=== PATIENT | female | born 1945 | race African-American/Black ===

== ENCOUNTER → 2017-07-29 | Outpatient (CLI) | payer MEDICARE ==
--- NOTE | 2017-07-29 15:24 | WOMENS IMAGING REPORT ---
EXAM DESCRIPTION: BILAT SCREENING MAMMO W/CAD COMPLETED DATE/TIME: 07/29/2017 2:19 pm REASON FOR STUDY: SCREENING Z12.31 ENCNTR SCREEN MAMMOGRAM FOR MALIGNANT NEOPLASM OF CEZAR COMPARISON: None. TECHNIQUE: Standard craniocaudal and mediolateral oblique views of each breast recorded using digita l acquisition. LIMITATIONS: None. FINDINGS: No masses, calcifications or architectural distortion. No areas of suspicion. Read with the assistance of CAD. .[facility] - R2 Cenova Version 1.3 .[facility] - R2 Cenova Version 1.3 .[facility] - R2 Cenova Version 2.4 .[facility] [place] - R2 Cenova Version 2.4 .[facility] - R2 [employer]ment Services Manager Version 9.2 IMPRESSION: NORMAL MAMMOGRAM. BIRADS 1. BREAST DENSITY: b. There are scattered areas of fibroglandular density. BIRAD: 1 NEGATIVE RECOMMENDATION: ROUTINE SCREENING COMMENT: The patient has been notified of the results by letter per SA requirements. Additional no tification policies are in place for contacting patient with suspicious or incomplete findings. Quality ID #225: The [employer] recommends an annual screening mammogram for women aged 40 years or over. This facility utilizes a reminder system to ensure that all patients receive reminder letters, and/or direct phone calls for appointments. This includes reminders for routine scr eening mammograms, diagnostic mammograms, or other Breast Imaging Interventions when appropriate. Th is patient will be placed in the appropriate reminder system. The [employer] (ACR) has developed recommendations for screening MRI of the breast s in certain patient populations, to be used in conjunction with mammography. Breast MRI surveillanc e may be appropriate for women with more than 20% lifetime risk of developing breast cancer as deter mined by genetic testing, significant family history of the disease, or history of mantle radiation f or Hodgkins Disease. ACR Practice Guidelines 2008. TECHNICAL DOCUMENTATION: FINDING NUMBER: (1) ASSESSMENT: (1) JOB ID: [id number] [employer]- All Rights Reserved
== END ==
LOC: WI 12:46
PROVIDERS: ATTEND Internal Medicine
DX: Z12.31 Encounter for screening mammogram for malignant neoplasm of breast (principal)
CPT/HCPCS: 77067; G0202

== ENCOUNTER 2018-07-15 09:21 | Day surgery (SDC) | payer MEDICARE ==
[~2018-07-15 09:21] MED LIST: KETOROLAC TROMETHAMINE 0.45% 4 DROP/0.4 ML DROPERETTE OD PRN
[2018-07-15] MEDS ORDERED: LIDOCAINE 1% INJ-PF (10 MG/ML) 30 ML SDV ONE (09:44)
[2018-07-15] MEDS ORDERED: EPINEPHRINE INJ/PF 1 MG/1 ML AMPULE ONE (09:44)
[2018-07-15] MEDS ORDERED: CHONDR SU A NA/HYALUR INTRAOC KIT (SURGICARE) ONE (09:44)
[2018-07-15] MEDS ORDERED: MIDAZOLAM 2 MG/2 ML INJ ONE (09:45)
[2018-07-15] MEDS ORDERED: TRYPAN BLUE 0.06 % OPH SOLN 0.5 ML DISP.SYRIN ONE ×2 (09:46→09:47)
[2018-07-15] MEDS: CYCLOPENTOLATE 0.2%/PHENYLEPHRINE 1% OPH SOLN 2 ML OD PRN ×3 (10:16→10:37)
[2018-07-15] MEDS: BESIFLOXACIN HCL 0.6% OPH SUSP 5 ML BOTTLE OD PRN ×4 (10:16→11:17)
[2018-07-15] MEDS: TROPICAMIDE 1% OPH SOLN 3 ML OD PRN ×3 (10:16→10:37)
[2018-07-15] MEDS: TETRACAINE HCL 0.5% OPH SOLN 4 ML OD PRN ×3 (10:17→10:55)
--- NOTE | 2018-07-16 07:27 | [facility] OPERATIVE REPORT E ---
[facility] Operative Report NAME: EDE WELLS AGE: 73Y DATE OF SURGERY: 07/15/2018 ROOM: PREOPERATIVE DIAGNOSIS: CATARACT, RIGHT EYE. POSTOPERATIVE DIAGNOSIS: CATARACT, RIGHT EYE. OPERATION: Cataract extraction with insertion of an IOL of the right eye. SURGEON: VONDA GODDARD M.D. ANESTHESIA: Topical. PROCEDURE: After obtaining appropriate consent, the patient's right eye was prepped and draped in sterile fashion as well as the surgeon in a sterile manner and cataract surgery was started. First a paracentesis blade was used to make a side-port incision. Viscoelastic was used to inflate the anterior chamber. Next a 2.4 mm incision was made with a 2.4 mm blade, clear corneal temporally. A continuous capsulorrhexis was made using a cystotome and Utrata forceps. Following this hydrodissection was carried out to make the lens fully loose and mobile and it was rotated 90 degrees. Following this, a hopbmj-yyi-qicvzhg technique was used to phacoemulsify the lens with a CDE of 10.37. The remaining cortex was removed with irrigation/aspiration. Provisc was instilled into the capsular bag to inflate the bag. A SN60WF, 22.5 diopter lens was placed. The remaining viscoelastic material was removed with irrigation/aspiration. Following this, the incision was found to be watertight. Besivance was instilled into the eye and a protective shield was placed over the eye. The patient returned to the postoperative recovery in stable condition. DICTATING PHYSICIAN: VONDA GODDARD M.D. [id number] PHY#: [id number] ID: [id number] JOB#: [id number] ACCT: [id number] cc:VONDA GODDARD M.D. >
--- NOTE | 2018-07-16 07:37 | [facility] DISCHARGE SUMMARY E ---
[facility] Discharge Summary NAME: EDE WELLS AGE: 73Y ADMITTED: 07/15/2018 DISCHARGED: 07/15/2018 HISTORY: This is a 73-year-old female who underwent cataract extraction of the right eye. DIAGNOSIS: Cataract, right eye. HOSPITAL COURSE: She underwent surgery because she was having difficulty driving at night secondary to glare from headlight. DISCHARGE INSTRUCTIONS: She should be on a regular diet. No bending at her waist. No heavy lifting. She should use her Vigamox, Ketorolac, and Predforte at 3 p.m. and 8 p.m. and sleep with a rigid shield, and I will see her for a one day postoperative tomorrow. DICTATING PHYSICIAN: VONDA GODDARD M.D. [id number] PHY#: [id number] 1938 ID: [id number] JOB#: [id number] ACCT: [id number] cc:VONDA GODDARD M.D. >
== END 2018-07-15 11:55 | disposition home or self-care (01) ==
LOC: SC 09:21
PROVIDERS: ATTEND Internal Medicine
DX: H25.89 Other age-related cataract (principal); I10 Essential (primary) hypertension; E11.9 Type 2 diabetes mellitus without complications
CPT/HCPCS: 66984; 82962; V2632; J2250; J3490 ×4; A9270; J0171

== ENCOUNTER 2018-08-05 09:16 | Day surgery (SDC) | payer MEDICARE ==
[~2018-08-05 09:16] MED LIST changes: +CHONDR SU A NA/HYALUR INTRAOC KIT (SURGICARE) ONE; +EPINEPHRINE INJ/PF 1 MG/1 ML AMPULE ONE; -KETOROLAC TROMETHAMINE 0.45% 4 DROP/0.4 ML DROPERETTE OD PRN; +KETOROLAC TROMETHAMINE 0.45% 4 DROP/0.4 ML DROPERETTE OS PRN; +LIDOCAINE 1% INJ-PF (10 MG/ML) 30 ML SDV ONE
[2018-08-05] MEDS: BESIFLOXACIN HCL 0.6% OPH SUSP 5 ML BOTTLE OS PRN ×4 (09:40→10:43)
[2018-08-05] MEDS: TETRACAINE HCL 0.5% OPH SOLN 4 ML OS PRN ×3 (09:40→10:21)
[2018-08-05] MEDS: TROPICAMIDE 1% OPH SOLN 3 ML OS PRN ×3 (09:40→10:00)
[2018-08-05] MEDS: CYCLOPENTOLATE 0.2%/PHENYLEPHRINE 1% OPH SOLN 2 ML OS PRN ×3 (09:40→10:00)
[2018-08-05] MEDS ORDERED: MIDAZOLAM 2 MG/2 ML INJ ONE (10:02)
[2018-08-05] MEDS ORDERED: TRYPAN BLUE 0.06 % OPH SOLN 0.5 ML DISP.SYRIN ONE (10:13)
[2018-08-05] MEDS ORDERED: FENTANYL CITRATE INJ/PF 100 MCG/2 ML AMPUL ONE (10:21)
--- NOTE | 2018-08-06 13:27 | [facility] OPERATIVE REPORT E ---
[facility] Operative Report NAME: EDE WELLS AGE: 73Y DATE OF SURGERY: 08/05/2018 ROOM: PREOPERATIVE DIAGNOSIS: Other age-related cataract of the left eye. POSTOPERATIVE DIAGNOSIS: Other age-related cataract of the left eye. OPERATION: Complex cataract extraction with use of Trypan blue dye due to dense cortical spoking. SURGEON: VONDA GODDARD M.D. ANESTHESIA: Topical. PROCEDURE: After obtaining appropriate consent, the patient's left eye was prepped and draped in sterile fashion as well as the surgeon in a sterile manner and cataract surgery was started. First a paracentesis blade was used to make a side-port incision. Viscoelastic was used to inflate the anterior chamber. Next a 2.4 mm incision was made with a 2.4 mm blade, clear corneal temporally. A continuous capsulorrhexis was made using a cystotome and Utrata forceps. Following this hydrodissection was carried out to make the lens fully loose and mobile and it was rotated 90 degrees. Following this, a eziwjt-bpt-xbvlewv technique was used to phacoemulsify the lens with a CDE of 9.35. The remaining cortex was removed with irrigation/aspiration. Provisc was instilled into the capsular bag to inflate the bag. A SN60WF, 23.0 diopter lens was placed. The remaining viscoelastic material was removed with irrigation/aspiration. Following this, the incision was found to be watertight. Besivance was instilled into the eye and a protective shield was placed over the eye. The patient returned to the postoperative recovery in stable condition. Prior to making the capsulorrhexis, due to poor visualization, Trypan blue dye was used to stain the anterior capsule. DICTATING PHYSICIAN: VONDA GODDARD M.D. [id number] PHY#: [id number] 2021 ID: [id number] JOB#: [id number] ACCT: [id number] cc:VONDA GODDARD M.D. >
--- NOTE | 2018-08-06 13:27 | [facility] DISCHARGE SUMMARY E ---
[facility] Discharge Summary NAME: EDE WELLS AGE: 73Y ADMITTED: 08/05/2018 DISCHARGED: 08/05/2018 HISTORY: This is a 73-year-old patient who underwent complex cataract extraction with the use of Trypan blue dye to dense cortical spoking. DIAGNOSIS: Other age-related cataract of the left eye. HOSPITAL COURSE: The patient underwent cataract extraction because she was having trouble seeing small print. DISCHARGE INSTRUCTIONS: She should be on a regular diet. No bending at the waist. No heaving lifting. She should her Vigamox, Ketorolac, and Durezol at 3 p.m. and 8 p.m. and sleep with a rigid shield, and I will see her for a 1 day postoperative tomorrow. DICTATING PHYSICIAN: VONDA GODDARD M.D. [id number] PHY#: [id number] 2021 ID: [id number] JOB#: [id number] ACCT: [id number] cc:VONDA GODDARD M.D. >
== END 2018-08-05 11:18 | disposition home or self-care (01) ==
LOC: SC 09:16
PROVIDERS: ATTEND Internal Medicine
DX: H25.89 Other age-related cataract (principal); Z96.1 Presence of intraocular lens; E11.9 Type 2 diabetes mellitus without complications; Z79.84 Long term (current) use of oral hypoglycemic drugs; I10 Essential (primary) hypertension; Z79.899 Other long term (current) drug therapy
CPT/HCPCS: 66982; 82962; V2632; J2250; J3490 ×4; A9270; J0171; J3010; 142

== ENCOUNTER → 2019-05-25 | Outpatient (CLI) | payer MEDICARE ==
--- NOTE | 2019-05-25 13:08 | WOMENS IMAGING REPORT ---
EXAM DESCRIPTION: BILAT SCREENING MAMMO W/CAD COMPLETED DATE/TIME: 05/25/2019 10:35 am REASON FOR STUDY: ROUTINE BILATERAL SCREENING;Z12.31 Z12.31 ENCNTR SCREEN MAMMOGRAM FOR MALIGNANT N EOPLASM OF CEZAR COMPARISON: 2016 EXAM PARAMETERS: Standard craniocaudal and mediolateral oblique views of each breast recorded using digital acquisition. Read with the assistance of CAD. .[employer] - [employer] Version 9.2 LIMITATIONS: None. FINDINGS: No suspicious masses, suspicious calcifications or architectural distortion. No areas of c oncern. IMPRESSION: Negative MAMMOGRAM. BIRADS 1 BREAST DENSITY: b. There are scattered areas of fibroglandular density. BIRAD: ASSESSMENT: 1 NEGATIVE RECOMMENDATION: ROUTINE SCREENING Please continue yearly bilateral screening mammography/tomosynthesis in May 2020 COMMENT: The patient has been notified of the results by letter per SA requirements. Additional no tification policies are in place for contacting patient with suspicious or incomplete findings. Quality ID #225: The [employer] recommends an annual screening mammogram for women aged 40 years or over. This facility utilizes a reminder system to ensure that all patients receive reminder letters, and/or direct phone calls for appointments. This includes reminders for routine scr eening mammograms, diagnostic mammograms, or other Breast Imaging Interventions when appropriate. Th is patient will be placed in the appropriate reminder system. TECHNICAL DOCUMENTATION: FINDING NUMBER: (1) ASSESSMENT: (1) JOB ID: [id number] [employer]- All Rights Reserved Reading location - IP/workstation name: [email or web address]
== END ==
LOC: WI 10:17
PROVIDERS: ATTEND Nurse Practitioner Family
DX: Z12.31 Encounter for screening mammogram for malignant neoplasm of breast (principal)
CPT/HCPCS: 77067

== ENCOUNTER 2020-01-27 17:55 | Emergency (ER) | payer MEDICARE ==
--- NOTE | 2020-01-27 19:44 | ER Document Report ---
ED Medical Screen (RME) - General Mode of Arrival: Ambulatory Information source: Patient TRAVEL OUTSIDE OF THE [place] IN LAST 30 DAYS: No <VIRGINIABELLA A - Last Filed: 01/27/20 19:40> <GIO BANEGAS IV - Last Filed: 01/27/20 21:52> - General Chief Complaint: Blurred Vision Stated Complaint: BLURRED VISION - LEFT EYE Time Seen by Provider: 01/27/20 19:29 Primary Care Provider: HAI NGUYEN FNP-C [Primary Care Provider] - Follow up as needed - HPI Notes: 01/27/20 19:40 74-year-old female with a history of type 2 diabetes, hypertension, hyperlipidemia, cataract surgery a year ago presents to the emergency room for left-sided "black spots and blurred vision" that started at 12 PM today and has been persistent since. Patient states that she has diminished sight in her left eye. Patient decided to come to the emergency room because she was unsure if this was related to her blood pressure which was elevated in triage of 179/88. Patient states she has had the blurred vision since 12:00 this afternoon. Patient states she did not take any of her home medications today and did not eat any food. She states she is a borderline diabetic. Denies any numbness or tingling down her arms or legs, denies any chest pain or shortness of breath. Denies any fevers or chills. Patient states the only complaint she has is left eye blurred vision I have greeted and performed a rapid initial assessment of this patient. A comprehensive ED assessment and evaluation of the patient, analysis of test results and completion of the medical decision making process will be conducted by additional ED providers. PHYSICAL EXAMINATION: GENERAL: Well-appearing, well-nourished and in no acute distress. HEAD: Atraumatic, normocephalic. EYES: Pupils equal round extraocular movements intact, conjunctiva are normal. Decreased peripheral her vision on left. Red reflex bilaterally NECK: Normal range of motion CV: Sinus tachycardia LUNGS: No respiratory distress Musculoskeletal: Normal range of motion NEUROLOGICAL: Normal speech, normal gait. No drift or dysmetria noted SKIN: Warm, Dry, normal turgor, no rashes or lesions noted. 01/27/20 19:42 01/27/20 19:44 (BELLA COLEMAN) - Related Data Allergies/Adverse Reactions: No Known Allergies Allergy (Verified 07/15/18 10:19) Past Medical History - Past Medical History Cardiac Medical History: Reports: Hx Hypertension Denies: Hx Heart Attack Pulmonary Medical History: Denies: Hx Asthma Neurological Medical History: Denies: Hx Cerebrovascular Accident, Hx Seizures GI Medical History: Denies: Hx Hepatitis, Hx Hiatal Hernia, Hx Ulcer Infectious Medical History: Denies: Hx Hepatitis Past Surgical History: Denies: Hx Mastectomy, Hx Open Heart Surgery, Hx Pacemaker <VIRGINIABELLA A - Last Filed: 01/27/20 19:40> Physical Exam - Vital signs Vitals: Temp Pulse Resp BP Pulse Ox 99.1 F 116 H 20 179/88 H 96 01/27/20 18:20 01/27/20 18:20 01/27/20 18:20 01/27/20 18:20 01/27/20 18:20 Course - Laboratory Result Diagrams: 01/27/20 20:07 01/27/20 20:07 <GIO BANEGAS IV - Last Filed: 01/27/20 21:52> - Vital Signs Vital signs: Temp Pulse Resp BP Pulse Ox 98.5 F 99 16 142/90 H 99 01/27/20 21:40 01/27/20 21:40 01/27/20 21:40 01/27/20 21:40 01/27/20 21:40 - Laboratory Laboratory results interpreted by me: 01/27/20 01/27/20 01/27/20 20:07 20:07 20:07 WBC 12.5 H Absolute Neuts (auto) 9.4 H Potassium 5.5 H Carbon Dioxide 32 H BUN 22 H Glucose 152 H Urine Protein 100 H Urine Blood MODERATE H Ur Leukocyte Esterase LARGE H - EKG Interpretation by Me Additional EKG results interpreted by me: 01/27/20 21:17 EKG obtained on 01/27/2020 at 1915 was interpreted by this MD. Findings: Sinus tachycardia rate 108, normal axis, P waves proceed QRS complexes, QRS complexes appear narrow, there are no obvious patterns of ST segment elevation or d epression present to suggest acute myocardial ischemia or infarction. Impression sinus tachycardia with nonspecific ST segments. (GIO BANEGAS IV) - Consults no instance Reason for consultation: 01/27/20 21:14 Complained of visual change; unable to perform adequate retinal exam in the ED. 01/27/20 21:15 (GIO BANEGAS IV) Procedures - Eye Procedure Bilateral Time completed: 21:10 - pt c/o left "black spots and blurred vision" Eye Irrigated w/ Saline (ccs): 0 Alcaine Drops Administered: Yes - bilateral Fluorescein applied: Left Slit lamp used: Yes <GIO BANEGAS IV - Last Filed: 01/27/20 21:52> - Eye Procedure Bilateral Notes: 01/27/20 21:11 Bilateral slit-lamp exam was performed on patient. No cell or flare was noted on either eye exam. Appropriate pupillary constrictive response was noted with exposure to light bilaterally. Positive consensual response also noted. There is no gross evidence of foreign body on either eye examination. The left eye was instilled with fluorescein after tetracaine was instilled in the left eye. There was no evidence of corneal abrasion. Tyson's test was negative. Intraocular pressure was also checked with a Doni-Pen. Patient's IOP in her left eye was 20 and in her right eye was 21. (GIO BANEGAS IV) Doctor's Discharge <BELLA COLEMAN - Last Filed: 01/27/20 19:40> <GIO BANEGAS IV - Last Filed: 01/27/20 21:52> - Discharge Prescriptions: Nitrofurantoin Monohyd/M-Cryst [Macrobid 100 mg Capsule] 100 mg PO BID #14 cap Referrals: HAI NGUYEN, TAVO-C [Primary Care Provider] - Follow up as needed
[2020-01-27] MEDS ORDERED: TETRACAINE HCL 0.5% OPH SOLN 4 ML OU ONE (20:32)
--- NOTE | 2020-01-27 20:32 | RADIOLOGY REPORT (SQ) ---
EXAM DESCRIPTION: CT HEAD WITHOUT IV CONTRAST COMPLETED DATE/TME: 01/27/2020 19:38 : CLINICAL HISTORY: 74 years Female L sided blurred vision, no peripheral vision COMPARISON: None. TECHNIQUE: Contiguous axial CT images obtained through the brain without IV contrast. This exam was performed according to our department optimization program which includes automated exposure control, adjustment of the mA and/or kv according to patient size and/or use of iterative reconstruction technique. FINDINGS: The ventricles and sulci are prominent consistent with atrophic changes. Microvascular ischemic changes. No midline shift or mass effect. No mass lesions. No acute hemorrhage. Atherosclerotic calcifications. No fluid or significant mucosal thickening in the visualized paranasal sinuses. No depressed calvarial fractures. IMPRESSION: No acute intracranial abnormality is identified. Generalized atrophy with microvascular ischemic changes.
--- NOTE | 2020-01-27 20:33 | RADIOLOGY REPORT (SQ) ---
EXAM DESCRIPTION: XR CHEST 1 VIEW COMPLETED DATE/TME: 01/27/2020 19:38 CLINICAL HISTORY: 74 years Female L sided blurred vision, no peripheral vision COMPARISON: None. FINDINGS: The cardiomediastinal silhouette appears unremarkable. No consolidating infiltrates or pleural effusions. No pneumothorax. Areas of linear atelectasis in the left midlung field IMPRESSION: No acute abnormality is identified.
[2020-01-27 20:39] LABS: ABSOLUTE BASOPHILS # (AUTO) 0.1 10^3/uL (0.0-0.2); ABSOLUTE EOSINOPHILS # (AUTO) 0.2 10^3/uL (0.0-0.6); ABSOLUTE LYMPHOCYTES (AUTO) 2.2 10^3/uL (0.5-4.7); ABSOLUTE MONOCYTES (AUTO) 0.7 10^3/uL (0.1-1.4); ABSOLUTE NEUT (AUTO) 9.4 10^3/uL (1.7-8.2); BASOPHILS % (AUTO) 0.5 % (0-2); EOSINOPHILS % (AUTO) 1.4 % (0-6); HEMATOCRIT 39.8 % (36.0-47.0); HEMOGLOBIN 13.1 g/dL (12.0-15.5); LYMPHOCYTES % (AUTO) 17.4 % (13-45); MEAN CORPUSCULAR HEMOGLOBIN 28.3 pg (27.0-33.4); MEAN CORPUSCULAR HGB CONC 32.8 g/dL (32.0-36.0); MEAN CORPUSCULAR VOLUME 86 fl (80-97); MONOCYTES % (AUTO) 5.2 % (3-13); PLATELET COUNT 323 10^3/uL (150-450); RED BLOOD COUNT 4.61 10^6/uL (3.72-5.28); SEGMENTED NEUTROPHILS % (AUTO) 75.5 % (42-78); TOTAL CELLS COUNTED % (AUTO) 100 %; WHITE BLOOD COUNT 12.5 10^3/uL (4.0-10.5)
[2020-01-27 20:41] LABS: PROTHROMBIN TIME 13.2 SEC (11.4-15.4)
[2020-01-27 20:56] LABS: APPEARANCE,URINE SLIGHTLY-CLOUDY; BILIRUBIN,URINE NEGATIVE (NEGATIVE); COLOR,URINE YELLOW; GLUCOSE, URINE NEGATIVE (NEGATIVE); KETONES,URINE NEGATIVE (NEGATIVE); LEUKOCYTE ESTERASE,URINE LARGE (NEGATIVE); NITRITE,URINE NEGATIVE (NEGATIVE); PROTEIN,URINE 100 mg/dL (NEGATIVE); URINE SPECIFIC GRAVITY 1.019; UROBILINOGEN,URINE NEGATIVE mg/dL (<2.0)
[2020-01-27 21:00] LABS: ALBUMIN 4.5 g/dL (3.5-5.0); ALKALINE PHOSPHATASE 90 U/L (38-126); ANION GAP 7 (5-19); ASPARTATE AMINO TRANSFERASE 24 U/L (14-36); BILIRUBIN,DIRECT 0.1 mg/dL (0.0-0.4); BILIRUBIN,TOTAL 0.6 mg/dL (0.2-1.3); BLOOD UREA NITROGEN 22 mg/dL (7-20); CALCIUM 10.1 mg/dL (8.4-10.2); CARBON DIOXIDE 32 mmol/L (22-30); CHLORIDE 102 mmol/L (98-107); GLUCOSE 152 mg/dL (75-110); POTASSIUM 5.5 mmol/L (3.6-5.0)
[2020-01-27] MEDS ORDERED: NITROFURANTOIN MONOHYD/M-CRYST 100 MG CAPSULE PO ONE (21:21)
[2020-01-27 21:41] VITALS: BP 142/90
--- NOTE | 2020-01-28 05:33 | ER Document Report ---
Entered by JESSICA IYER SCRIBE 01/27/202056 Acting as scribe for:GIO BANEGAS IV, MD ED Eye Complaint - General Chief Complaint: Blurred Vision Stated Complaint: BLURRED VISION - LEFT EYE Time Seen by Provider: 01/27/20 19:29 Primary Care Provider: HAI NGUYEN FNP-C [Primary Care Provider] - Follow up as needed Mode of Arrival: Ambulatory Information source: Patient Notes: This 74 year old female patient with a history of HTN, HLD, DM II, and left cataract extraction 08/2018 presents to the ED today with complaints of blurred vision to her left eye that started around 1200 this afternoon. Patient states "it's like a bubble over it, I see black spots." She notes that this sensation is constant in nature. She is concerned that her blurred vision is related to her hypertension. She admits that she wears corrective lenses, but she left them at home. She reports that she has an appointment on 01/30/[address] interpreter. Denies numbness/tingling to extremities, chest pain, shortness of breath, fever, or chills. TRAVEL OUTSIDE OF THE [place] IN LAST 30 DAYS: No - Related Data Allergies/Adverse Reactions: No Known Allergies Allergy (Verified 07/15/18 10:19) Past Medical History - General Information source: Patient - Social History Smoking Status: Never Smoker Cigarette use (# per day): No Chew tobacco use (# tins/day): No Smoking Education Provided: No Family History: Reviewed & Not Pertinent Patient has suicidal ideation: No Patient has homicidal ideation: No - Past Medical History Cardiac Medical History: Reports: Hx Hypercholesterolemia, Hx Hypertension Endocrine Medical History: Reports: Hx Diabetes Mellitus Type 2 Past Surgical History: Reports: Other - Left cataract extraction 08/2018 Review of Systems - Review of Systems Constitutional: See HPI. denies: Chills, Fever EENT: See HPI, Blurred vision Cardiovascular: See HPI. denies: Chest pain Respiratory: See HPI. denies: Short of breath Gastrointestinal: No symptoms reported Genitourinary: No symptoms reported Female Genitourinary: No symptoms reported Musculoskeletal: No symptoms reported Skin: No symptoms reported Hematologic/Lymphatic: No symptoms reported Neurological/Psychological: See HPI. denies: Numbness, Tingling -: Yes All other systems reviewed and negative Physical Exam - Vital signs Vitals: Temp Pulse Resp BP Pulse Ox 99.1 F 116 H 20 179/88 H 96 01/27/20 18:20 01/27/20 18:20 01/27/20 18:20 01/27/20 18:20 01/27/20 18:20 - General General appearance: Alert In distress: None - HEENT Head: Normocephalic, Atraumatic Conjunctiva: Normal Cornea: Normal, Other - Negative Tyson's test. No: Corneal abrasion Extraocular movements intact: Yes Visual acuity- Right eye: 20/40 Visual acuity- Left eye: 20/200 Corrective lenses worn: No - states she left them at home Right intraocular pressure: 21 Left intraocular pressure: 20 - Respiratory Respiratory status: No respiratory distress Chest status: Nontender Breath sounds: Normal Chest palpation: Normal - Cardiovascular Rhythm: Regular Heart sounds: Normal auscultation Murmur: No Friction rub: No Gallop: None auscultated - Abdominal Inspection: Normal Distension: No distension Bowel sounds: Normal Tenderness: Nontender - Abdomen soft Organomegaly: No organomegaly - Back Back: Normal, Nontender - Extremities General upper extremity: Normal inspection General lower extremity: Normal inspection - Neurological Neuro grossly intact: Yes Orientation: AAOx4 Rosalia Coma Scale Eye Opening: Spontaneous Rosalia Coma Scale Verbal: Oriented Rosalia Coma Scale Motor: Obeys Commands Rosalia Coma Scale Total: 15 - Psychological Associated symptoms: Normal affect, Normal mood - Skin Skin Temperature: Warm Skin Moisture: Dry Skin Color: Normal Course - Re-evaluation Re-evalutation: 01/27/20 21:19 Results of ED MSE discussed with patient. Patient's current blood pressure is 144/99. Patient states she missed a dose of her blood pressure medication today. Patient was instructed that Dr. Urban will get in touch with her tomorrow morning to see if she is still having symptoms and will see her in his office tomorrow if need be. All questions were answered prior to discharge. Emergency signs and symptoms, reasons to return to the emergency department discussed with patient. - Vital Signs Vital signs: Temp Pulse Resp BP Pulse Ox 98.5 F 99 16 142/90 H 99 01/27/20 21:40 01/27/20 21:40 01/27/20 21:40 01/27/20 21:40 01/27/20 21:40 - Laboratory Result Diagrams: 01/27/20 20:07 01/27/20 20:07 Laboratory results interpreted by me: 01/27/20 01/27/20 01/27/20 20:07 20:07 20:07 WBC 12.5 H Absolute Neuts (auto) 9.4 H Potassium 5.5 H Carbon Dioxide 32 H BUN 22 H Glucose 152 H Urine Protein 100 H Urine Blood MODERATE H Ur Leukocyte Esterase LARGE H - EKG Interpretation by Me Additional EKG results interpreted by me: 01/27/20 21:17 EKG obtained on 01/27/2020 at 1915 was interpreted by this MD. Findings: Sinus tachycardia rate 108, normal axis, P waves proceed QRS complexes, QRS complexes appear narrow, there are no obvious patterns of ST segment elevation or depression present to suggest acute myocardial ischemia or infarction. Impression sinus tachycardia with nonspecific ST segments. - Consults Dr. Urban with office [facility] Time consulted: 21:06 - Dr. Urban requested a phone number contact for the patient. This MD gave him the patient's phone number as well as the patient's son's phone number. Dr. Urban stated he would contact the patient in the a.m. on 01/28/2020 to see if the patient is still symptomatic. He stated he would see the patient in his office tomorrow, on Thursday, if need be at the patient was still symptomatic. Consulted provider: follow-up in office Dr. Urban Time consulted: 21:14 - Complained of visual change; unable to perform adequate retinal exam in the ED. Procedures - Eye Procedure Bilateral Time completed: 21:00 - slit exam, pt c/o left eye visual changes Eye Irrigated w/ Saline (ccs): 0 Alcaine Drops Administered: Yes Fluorescein applied: Left Slit lamp used: Yes Notes: 01/27/20 21:47 Bilateral slit exam was performed on patient. No cell or flare was noted on either eye exam. Appropriate pupillary constrictive response was noted with exposure to light bilaterally positive consensual response was also noted. There is no gross evidence of foreign body on either eye examination. The left eye was instilled with fluorescein after tetracaine was instilled in left eye. There was no evidence of corneal abrasion. Tyson's test was negative. No dendritic pattern of forcing uptake was seen. No corneal ulcerations were appreciated. Intraocular pressure was also checked with a Doni-Pen. Patient's IOP in her left eye was 20 and her right eye was 21. Discharge - Discharge Clinical Impression: Visual changes Urinary tract infection Qualifiers: Urinary tract infection type: site unspecified Hematuria presence: with hematuria Qualified Code(s): N39.0 - Urinary tract infection, site not specified; R31.9 - Hematuria, unspecified Condition: Stable Disposition: HOME, SELF-CARE Instructions: Urinary Tract Infection ([facility]) Additional Instructions: Return to the Emergency Department without delay if any worse. HOME CARE INSTRUCTIONS & INFORMATION: Thank you for choosing us for your medical needs. We hope you're satisfied with the care you received. After you leave, you must properly care for your problem and, at the same time, observe its progress. Any condition can change. Some illnesses can change rapidly over hours or days. If your condition worsens, return to the Emergency Department or see your physician promptly. ABOUT YOUR X-RAYS AND EKG'S: If you had an EKG or X-rays taken, they have been read by the Emergency Physician. The X-rays and EKG's will also be read by a Radiologist or Style Advisor within 24 hours. If discrepancies are noted, you will be notified by telephone. Please be certain the ED has a correct telephone number & address where you can be reached. Also, realize that some fractures or abnormalities do not show up on initial X-rays. If your symptoms continue, see your physician. ABOUT YOUR LABORATORY TEST: If you had laboratory tests, the results have been reviewed by the Emergency Physician. Some test results (for example cultures) may not be available for several days. You will be contacted if any test result shows you need additional treatment. Please be certain the ED has a correct telephone number and address where you can be reached. ABOUT YOUR MEDICATIONS: You will receive instructions on how to take your medicine on the prescription label you receive. Additional information may be provided by the Pharmacy. If you have questions afterwards, call the ED for clarification or further instructions. Some prescribed medications may cause drowsiness. Do not perform tasks such as driving a car or operating machinery without consulting your Pharmacist. If you feel you need a refill of pain medication, your condition will need re-evaluation. Please do not call for a refill of any medication. ABOUT YOUR SIGNATURE: Signature of this document acknowledges to followin. Understanding that you received emergency treatment and that you may be released before al medical problems are known or treated. Please be certain the ED has a correct phone number & address where you can be reached. 2. Acknowledgement that you will arrange for follow-up care as recommended. 3. Authorization for the Emergency Physician to provide information to your follow-up Physician in order to maximize your care. AT ANY TIME, IF YOUR SYMPTOMS CHANGE SIGNIFICANTLY OR WORSEN OR YOU DEVELOP NEW SYMPTOMS, RETURN TO THE EMERGENCY DEPARTMENT IMMEDIATELY FOR RE-EVALUATION. OUR GOAL IS TO PROVIDE EXCELLENT MEDICAL CARE! WE HOPE THAT WE HAVE MET YOUR EXPECTATIONS DURING YOUR EMERGENCY DEPARTMENT VISIT AND THAT YOU FEEL YOU HAVE RECEIVED EXCELLENT CARE! Prescriptions: Nitrofurantoin Monohyd/M-Cryst [Macrobid 100 mg Capsule] 100 mg PO BID #14 cap Referrals: HAI NGUYEN FNP-C [Primary Care Provider] - Follow up as needed I personally performed the services described in the documentation, reviewed and edited the documentation which was dictated to the scribe in my presence, and it accurately records my words and actions.
--- NOTE | 2020-01-28 22:11 | EKG REPORT ---
SEVERITY:- BORDERLINE ECG - SINUS TACHYCARDIA PROBABLE LEFT ATRIAL ABNORMALITY : Confirmed by: Julienne Rincon 28-Jan-2020 22:10:56
== END 2020-01-27 21:40 | disposition home or self-care (01) ==
LOC: ER 17:55
DX: N39.0 Urinary tract infection, site not specified (principal); R31.9 Hematuria, unspecified; H53.8 Other visual disturbances; I10 Essential (primary) hypertension; E78.5 Hyperlipidemia, unspecified; E11.9 Type 2 diabetes mellitus without complications; Z98.890 Other specified postprocedural states
CPT/HCPCS: 93005; 99284; 36415; 84443; 85025; 85610; 80053; 81001; 84484; 71045; 70450; 93010; A9270; J3490; J8499

== ENCOUNTER → 2020-05-28 | Outpatient (CLI) | payer MEDICARE ==
--- NOTE | 2020-05-28 13:24 | WOMENS IMAGING REPORT ---
EXAM DESCRIPTION: 3D SCREENING MAMMO BILAT IMAGES COMPLETED DATE/TIME: 05/28/2020 12:05 pm REASON FOR STUDY: Z12.31 ENCOUNTER FOR SCREENING MAMMOGRAM FOR MALIGNANT NEOPLASM OF BREAST Z12.31 ENCNTR SCREEN MAMMOGRAM FOR MALIGNANT NEOPLASM OF CEZAR COMPARISON: 2016, 2018 EXAM PARAMETERS: Views: Standard craniocaudal and mediolateral oblique views of each breast recorded using digital acquisition and breast tomosynthesis. Read with the assistance of CAD. [facility] Therapies Department Manager Version 9.2 LIMITATIONS: None. FINDINGS: No suspicious masses, suspicious calcifications or architectural distortion. No areas of c oncern. IMPRESSION: NEGATIVE MAMMOGRAM. BIRADS 1. BREAST DENSITY: b. There are scattered areas of fibroglandular density. BIRAD: ASSESSMENT: 1 NEGATIVE RECOMMENDATION: ROUTINE SCREENING Please continue yearly bilateral screening mammography/tomosynthesis in May 2021 COMMENT: The patient has been notified of the results by letter per MQSA requirements. Additional no tification policies are in place for contacting patient with suspicious or incomplete findings. Quality ID #[id number]: [employer] recommends an annual screening mammogram for women aged 40 years or over. This facility utilizes a reminder system to ensure that all patients receive reminder letters, and/or direct phone calls for appointments. This includes reminders for routine scr eening mammograms, diagnostic mammograms, or other Breast Imaging Interventions when appropriate. Th is patient will be placed in the appropriate reminder system. TECHNICAL DOCUMENTATION: FINDING NUMBER: (1) ASSESSMENT: (1) JOB ID: [id number] 2010 [employer]- All Rights Reserved Reading location - IP/workstation name: [email or web address]
== END ==
LOC: WI 11:22
PROVIDERS: ATTEND Nurse Practitioner Family
DX: Z12.31 Encounter for screening mammogram for malignant neoplasm of breast (principal); N64.89 Other specified disorders of breast
CPT/HCPCS: 77063; 77067